=== PATIENT | female | born 1965 | race Caucasian/White ===

== ENCOUNTER → 2016-06-28 19:36 | Outpatient (CLI) | payer BC | END | disposition home or self-care (01) | LOC: D.MAMMO 16:00 | DX: Z12.31 Encounter for screening mammogram for malignant neoplasm of breast (principal) ==

== ENCOUNTER 2017-05-20 11:54 | Emergency (ER) | payer BC ==
[2017-05-20 14:05] LABS: BASOPHILS 0.7 % (0-2); EOSINOPHILS 3.9 % (0-7); HEMATOCRIT 42.4 % (36.0-48.0); IMMATURE GRANULOCYTES 0.5 % (0-5); LYMPHOCYTES 37.7 % (15-50); MCH 29.4 pg (26.0-34.0); MCV 88.9 fL (80.0-100.0); MEAN PLATELET VOLUME 10.2 fL (7.4-10.4); NEUTROPHILS 50.2 % (40-80); PLATELET COUNT 263 10x3/uL (130-400); RBC 4.77 10x6/uL (4.00-5.40); RDW 13.5 % (11.5-14.5); WBC 6.1 10x3/uL (4.8-10.8)
[2017-05-20 14:59] LABS: ALBUMIN 4.1 g/dL (3.4-5.0); ANION GAP 15.8 mmol/L (8-16); BILIRUBIN - TOTAL 0.25 mg/dL (0.2-1.3); CALCIUM 9.6 mg/dL (8.5-10.1); CARBON DIOXIDE 25.6 mmol/L (21.0-32.0); CREATININE - SERUM 0.9 mg/dL (0.6-1.3); POTASSIUM - SERUM 4.4 mmol/L (3.5-5.1); PROTEIN - SERUM 7.1 g/dL (6.4-8.2)
[2017-05-21] MEDS ORDERED: LAMICTAL200 MG PO (08:04)
[2017-05-21] MEDS ORDERED: VISTARIL50 MG PO (08:04)
[2017-05-21] MEDS ORDERED: DESERYL100 MG PO (08:04)
[2017-05-21] MEDS ORDERED: LITHIUM CARBON150 MG PO (08:05)
[2017-05-21] MEDS ORDERED: VIBRAMYCIN50 MG PO (08:05)
[2017-05-21] MEDS ORDERED: PROTONIX40 MG PO (08:05)
[2017-05-21 08:40] VITALS: BMI 37.1
== END 2017-05-20 15:45 | disposition home or self-care (01) ==
LOC: D.ER 11:54
PROVIDERS: Emergency Medicine
DX: M79.661 Pain in right lower leg (principal); K21.9 Gastro-esophageal reflux disease without esophagitis; I10 Essential (primary) hypertension

== ENCOUNTER 2017-05-21 07:29 | Outpatient (CLI) | payer BC ==
[~2017-05-21] VITALS: Ht 162.6 cm; Wt 98.2 kg
--- NOTE | ~2017-05-21 | OP ---
PATIENT NAME: MOISÉS AGUIRRE MEDICAL RECORD: [id number] :65 LOCATION:D.CAT ADMISSION DATE: SURGEON: ALBA LINDO MD DATE OF OPERATION: 05/21/2017 PROCEDURES: 1. Left heart catheterization. 2. Selective coronary angiography. 3. Left ventriculogram. 4. Aortofemoral runoff. 5. Abdominal aortography. INDICATION: Leg pain compatible with claudication, chest pain compatible with angina. PROCEDURE IN DETAIL: After informed consent was obtained and after detailed explanation of risks, benefits as well as alternative therapies, the patient elected to proceed with angiogram and angioplasty. The left femoral area was prepped and draped in normal sterile fashion. Left femoral artery was cannulated via modified Seldinger technique with placement of 6-Kiswahili sheath. All catheters exchanged through this sheath. FINDINGS: The left ventriculogram was performed in standard 30-degree BERNABE view, reveals good cardiac wall motion throughout all segments. Overall ejection fraction estimated 60%. SELECTIVE CORONARY ANGIOGRAPHY: Left main, left anterior descending, left circumflex, and right coronary artery are all smooth-walled vessels with no angiographic evidence of coronary artery disease. Abdominal aortography was performed. The catheter was pulled down for aortofemoral runoff. Abdominal aortography reveals no significant abdominal aortic disease. No dissection or aneurysm formation. No renal artery stenosis. RIGHT LEG: A. Iliac: The common internal and external iliacs have mild irregularities, but no flow-limiting stenosis. B. Femoral system: The common, superficial and deep femoral have moderate irregularities, but no flow-limiting stenosis. C. Popliteal and infrapopliteal vessels are widely patent with good 3-vessel runoff to the foot. LEFT LEG: A. Iliac: The common internal and external iliacs have mild irregularities, but no flow-limiting stenosis. B. Femoral system: The common, superficial and deep femoral have moderate irregularities, but no flow-limiting stenosis. C. Popliteal and infrapopliteal vessels are widely patent with good 3-vessel runoff to the foot. OVERALL IMPRESSION: 1. No significant coronary artery disease is present. 2. No significant peripheral vascular disease is present. Leg pain is non-arterial vascular in etiology. Chest pain is noncardiac in etiology. OPERATIVE REPORT [id number] MOISÉS AGUIRRE TRANSINT:[id number] Voice Confirmation ID: [id number] DOCUMENT ID: [id number] ALBA LINDO MD at 1324 CC: [id number] DICTATION DATE: 05/21/17 1046 WINDERMAN: 05/21/17 1423 DEP CLI 05/21/17 [id number] [place] [address]
--- NOTE | ~2017-05-21 | HEMODYNAMI ---
PATIENT:MOISÉS AGUIRRE MEDICAL RECORD: [id number] : 65 LOCATION:DRAMA ADMISSION DATE: 05/21/17 Generatedon:05/21/201710:48 Patient name: MOISÉS AGUIRRE Patient #: [id number] SSN: [id number] : 1965 Date of study: 05/21/2017 Page: Of Hemodynamic Procedure Report Patient Data Patient Demographics Procedure consent was obtained First Name: MOISÉS Gender: Female Last Name: CARLA : 1965 Middle Initial: NEFTALY Age: 52 year(s) Patient #: [id number] Race: Unknown SSN: [id number] Additional ID: [id number] Contact details Address: [address] [place] [address] State: [place] City: [place] Zip code: [address] Admission Admission Data Admission Date: 05/21/2017 Admission Time: 7:29 Arrival Date: 05/21/2017 Arrival Time: 9:30 Admit Source: Other Insurance Payor: Private health insurance Height (in.): 5.3 BSA: 0.34 (m2) Height (cm.): 13.46 BMI: 5606.54 (kg/m2) Weight (lbs.): 224 Weight (kg.): 101.6 Lab Results Lab Result Date: 05/21/2017 Lab Result Time: 0:00 Biochemistry Name Units Result Min Max BUN mg/dl 14 --(--*-)-- 7 18 Creatinine mg/dl 0.9 --(-*--)-- 0.6 1.3 CBC Name Units Result Min Max Hemoglobin g/dl 13.7 --(*---)-- 13.5 17.5 Procedure Procedure Types Cath Procedure Diagnostic Procedure [facility] w/Coronaries Miscellaneous Procedures Moderate Sedation up to 15 minutes Peripheral Cath Diagnostic Procedure Cath Peripheral Jkecy-Hjlqrqk-Qoz-Off Procedure Description Procedure Date Procedure Date: 05/21/2017 Procedure Start Time: 10:34 Procedure End Time: 10:41 Procedure Staff Name Function Pal Gomez MD Performing Physician Migdalia Yuen RT Monitor Kathleen Gutiérrez RT Scrub Funmi Salinas RN Nurse Procedure Data Cath Procedure Fluoroscopy Diagnostic fluoroscopy Total fluoroscopy Time: 1.2 time: 1.2 min min Diagnostic fluoroscopy Total fluoroscopy dose: 363 dose: 363 mGy mGy Contrast Material Contrast Material Type Amount (ml) Isovue 300 93 Entry Location Entry Primary Successful Side Size Upsize Upsize Entry Closure Succes sful Closure Location (Fr) 1 (Fr) 2 (Fr) Remarks Device Remarks Femoral Left 5 Fr Exoseal artery Estimated blood loss: 5 ml Diagnostic catheters Device Type Used For End Catheter Placement MULTIPACK Pigtail 5 Fr Multi-vessel catheter Angiography MULTIPACK 3DRC 5Fr Right Coronary catheter Angiography MULTIPACK JL 4.0 5Fr Left Coronary catheter Angiography Procedure Complications No complications Procedure Medications Medication Administration Route Dosage 0.9% NaCl I.V. 100 ml/hr Oxygen NC 2 l/min Lidocaine 2% added to field 20 Heparin Flush Bag added to field 2 bags (1000units/500ml NS) Fentanyl I.V. 50 mcg Versed I.V. 1 mg Versed I.V. 1 mg Fentanyl I.V. 50 mcg Versed I.V. 1 mg Versed I.V. 1 mg Hemodynamics Rest BSA: 0.34 (m2) HGB: 13.7 (g/dl) O2 Consumption: Estimated: 36.11 (ml/min) O2 Con sumption indexed: Estimated:106.21 (ml/min/m) Heart Rate: 94 (bpm) Pressure Samples Time Site Value (mmHg) Purpose Heart Use Rate(bpm) 10:35 LV 49/20,23 Snapshot 87 Snapshots Pre Cath Intra NCS Post Cath Vital Signs Time Heart Resp SPO2 etCO2 NIBP (mmHg) Rhythm Pain Sedation Rate (ipm) (%) (mmHg) Status Level (bpm) 9:46:15 95 20 100 29.5 184/107(147) NSR 0 (11) 10(A) , No pain 9:50:49 91 19 99 33.2 193/106(147) NSR 0 (11) 10(A) , No pain 9:55:19 100 24 98 24.9 176/120(150) NSR 0 (11) 10(A) , No pain 9:59:50 95 16 97 33.2 163/102(138) NSR 0 (11) 10(A) , No pain 10:04:18 94 15 96 18.1 149/91(126) NSR 0 (11) 10(A) , No pain 10:08:38 98 16 96 32.5 157/94(118) NSR 0 (11) 10(A) , No pain 10:13:01 97 16 96 33.2 140/94(121) NSR 0 (11) 10(A) , No pain 10:17:16 98 15 96 25.7 135/94(121) NSR 0 (11) 10(A) , No pain 10:21:30 98 15 96 36.3 138/92(114) NSR 0 (11) 9(A) , No pain 10:25:46 100 14 98 35.5 134/95(114) NSR 0 (11) 9(A) , No pain 10:29:57 107 14 99 36.3 142/95(118) NSR 0 (11) 10(A) , No pain 10:34:17 105 22 95 34 143/90(118) NSR 0 (11) 9(A) , No pain 10:38:37 108 18 96 37 138/90(116) NSR 0 (11) 10(A) , No pain Medications Time Medication Route Dose Verified Delivered Reason Notes E ffectiveness by by 9:36:16 0.9% NaCl I.V. 100ml/hr Pal Choudhary used for Jason Salinas RN procedure 9:36:27 Oxygen NC 2 l/min Pal Choudhary Per Jason Salinas RN physician 9:36:36 Lidocaine 2% added 20ml Pal Aguillon for local to vial Jason Gomez MD anesthetic field 9:36:42 Heparin Flush added 2 bags Pal Aguillon used for Bag to Jason Gomez MD procedure (1000units/500ml field NS) 10:18:47 Fentanyl I.V. 50 mcg Pal Choudhary for Jason Salinas RN sedation 10:18:55 Versed I.V. 1 mg Pal Choudhary for Jason Salinas RN sedation 10:25:24 Versed I.V. 1 mg Pal Choudhary for Jason Salinas RN sedation 10:25:31 Fentanyl I.V. 50 mcg Pal Salinas RN sedation 10:36:56 Versed I.V. 1 mg Pal Salinas RN sedation 10:38:20 Versed I.V. 1 mg Pal Salinas RN sedation Procedure Log Time Note 9:10:41 Patient Height : 5.3 inches 9:10:45 Patient Weight : 224 lbs 9:11:11 Time tracking: Regular hours 9:11:15 Plan of Care:Hemodynamics will remain stable., Cardiac rhythm will remain stable., Comfort level will be maintained., Respiratory function will remain adequate., Patient/ family verbilizes understanding of procedure., Procedure tolerated without complication., Recovers from procedure without complications.. 9:17:27 Lab Result : BUN 14 mg/dl 9:: Lab Result : Hemoglobin 13.7 g/dl 9:: Lab Result : Creatinine 0.9 mg/dl 9:30:41 Funmi Salinas RN sent for patient. Start room use. 9:32:04 Admit Source: Other 9:32:09 Arrival Date: 05/21/2017 9:30:00 AM 9:32:17 Insurance Payor : Private health insurance 9:36:16 0.9% NaCl 100ml/hr I.V. was administered by Funmi Salinas RN; used for procedure; 9:36:27 Oxygen 2 l/min NC was administered by Funmi Salinas RN; Per physician; 9:36:36 Lidocaine 2% 20ml vial added to field was administered by Pal Gomez MD; for local anesthetic; 9:36:42 Heparin Flush Bag (1000units/500ml NS) 2 bags added to field was administered by Pal Gomez MD; used for procedure; 9:38:58 Patient received from Pre/Post Procedure Room to [facility] 2 Alert and oriented. Tansferred to table in Supine position. 9:39:00 Warm blankets applied, and lm hugger turned on for patient comfort. 9:39:00 Correct patient and procedure confirmed by team. 9:39:01 Signed procedure consent form obtained from patient. 9:44:53 Vital chart was started 9:50:18 ECG and BP/O2 sat monitors applied to patient. 9:50:24 Baseline sample Acquired. 9:50:32 Rhythm: sinus rhythm 9:50:34 Full Disclosure recording started 9:51:43 H&P Date Dictated: 05/02/2017 Within 30 days and on chart., H&P Addendum completed by physician on day of procedure. (MUST COMPLETE FOR ALL OUTPATIENTS). 9:51:49 Pre-procedure instructions explained to patient. 9:51:50 Pre-op teaching completed and patient verbalized understanding. 9:51:52 Family in waiting room. 9:51:56 Patient NPO since Midnight. 9:52:00 Is the patient allergic to Iodine/contrast media? No. 9:52:11 Was the patient premedicated? No 9:52:23 Is patient on blood thinner?No 9:52:25 Patient diabetic? No. 9:52:28 Previous problem with sedation/anesthesia? No ? 9:52:29 Snore? Yes 9:52:30 Sleep apnea? No 9:52:31 Deviated septum? No 9:52:32 Opens mouth fully? Yes 9:52:33 Sticks out tongue? Yes 9:52:35 Airway obstruction? No ? 9:52:39 Dentures? No ? 9:52:43 Pre procedure: right dorsailis pedis pulse 2+ Normal; easily identifiable; not easily obliterated 9:52:45 Pre procedure: left dorsailis pedis pulse 2+ Normal; easily identifiable; not easily obliterated 9:52:47 Patient pain scale 0/10 ?. 9:52:53 IV patent on arrival in left forearm with 0.9% NaCl at KVO. 9:52:56 Lab results completed and on chart. 9:53:02 Right groin area was prepped with chlora-prep and draped in sterile fashion 9:53:03 Alarms reviewed by R. N. 9:53:04 Sharps counted by scrub and verified by R.N. 10:01:21 Zero performed for pressure channel P1 10:17:47 Physician arrived 10:17:48 --------ALL STOP TIME OUT------ 10:17:48 Final Timeout: patient, procedure, and site verified with staff and physician. All members of the team are in agreement. 10:17:58 Bilateral groins site verified by team. 10:18:01 Physical assessment completed. ASA score P 2 - A patient with mild systemic disease as per Pal Tauth MD. 10:18:04 Sedation plan: IV Moderate Sedation Medication:Versed, Fentanyl 10:18:47 Fentanyl 50 mcg I.V. was administered by Funmi Salinas RN; for sedation; 10:18:55 Versed 1 mg I.V. was administered by Funmi Salinas RN; for sedation; 10:19:07 Use device set Femoral Dx 10:19:08 ACIST Syringe (02695) opened to sterile field. 10:19:09 Bag Decanter (2002S) opened to sterile field. 10:19:09 Medline Cath Pack ([id number]) opened to sterile field. 10:19:10 SHEATH 5FR [place]wood (UIT683) opened to sterile field. 10:19:10 DIAGNOSTIC WIRE .035 260cm J wire (226616) opened to sterile field. 10:19:11 ACIST Hand Control (89875) opened to sterile field. 10:19:12 ACIST Manifold (70369) opened to sterile field. 10:19:12 DIAGNOSTIC Multipack 5Fr catheter set (MD4342) opened to sterile field. 10:19:14 Tegaderm 4 x 4 (1626W) opened to sterile field. 10:21:10 Procedure type changed to Cath procedure, Diagnostic procedure, LHC, LHC w/Coronaries, Miscellaneous Procedures, Moderate Sedation up to 15 minutes, Peripheral Cath Diagnostic Procedure, Cath Peripheral, Qqccm-Obhwmhm-Pte-Off 10:25:24 Versed 1 mg I.V. was administered by Funmi Salinas RN; for sedation; 10:25:31 Fentanyl 50 mcg I.V. was administered by Funmi Salinas RN; for sedation; 10:33:13 Procedure started. 10:34:30 Local anesthetic to left femerol artery with Lidocaine 2% by Pal Gomez MD.INITIAL ACCESS ONLY 10:34:41 A 5 Fr sheath was inserted into the Left Femoral artery 10:35:31 A MULTIPACK Pigtail 5 Fr catheter was advanced over the wire and used for Multi-vessel Angiography. 10:35:54 LV hemodynamics recorded. 10:35:55 LV gram done using BERNABE 10:35:58 Injector settings: Ml/sec: 5, Volume: 15, 10:36:13 EF : 60 % 10:36:18 Abdominal angiogram w/ runoff was performed. 10:36:56 Versed 1 mg I.V. was administered by Funmi Salinas RN; for sedation; 10:37:14 Catheter removed. 10:38:16 A MULTIPACK 3DRC 5Fr catheter was advanced over the wire and used for Right Coronary Angiography. 10:38:18 RCA angiography performed. 10:38:20 Versed 1 mg I.V. was administered by Funmi Salinas RN; for sedation; 10:38:21 Injector settings: Ml/sec: 3, Volume: 6, 10:38:24 Catheter removed. 10:38:28 A MULTIPACK JL 4.0 5Fr catheter was advanced over the wire and used for Left Coronary Angiography. 10:38:56 LCA angiography performed. 10:39:00 Injector settings: Ml/sec: 3, Volume: 6, 10:39:53 EXOSEAL 5Fr (EX500) opened to sterile field. 10:40:02 Sheath removed intact; hemostasis achieved with Exoseal to the Left Femoral artery. 10:40:10 Procedure ended.(Physican Out) 10:40:27 Fluoroscopy time 01.20 minutes. 10:40:31 Fluoroscopy dose: 363 mGy 10:40:31 Flurop Dose total: 363 10:40:39 Contrast amount:Isovue 300 93ml. 10:40:44 Sharps counted by scrub and verified by R.N. 10:40:59 Insertion/operative site no bleeding no hematoma. 10:41:05 Post-op/insertion site Left Femoral artery dressed using a 4 x 4 and Tegaderm. 10:41:08 Post left femerol artery:stable 10:41:10 Post Procedure Pulses reassessed and unchanged 10:41:12 Post procedure rhythm: unchanged. 10:41:15 Estimated blood loss: 5 ml 10:41:16 Post procedure instruction explained to patient.Patient verbalizes understanding. 10:41:16 Patient needs reinforcement of post procedure teaching. 10:41:18 Procedure and supply charges have been captured, reviewed, submitted and are correct. 10:41:23 Procedure Complication : No complications 10:41:26 Vital chart was stopped 10:41:26 See physician's report for complete and final results. 10:41:38 Report given to Pre/Post Procedure Room. 10:41:41 Patient transfered to Pre/Post Procedure Room with Stretcher. 10:41:44 Procedure ended. 10:41:44 Full Disclosure recording stopped 10:41:48 End room use (Document Last) Device Usage Item Name Manufacture Quantity Catalog Hospital Part Current Minimal L ot# / Number Charge Number Stock Stock Serial# Code ACIST Acist 1 44904 257729 956246 293975 20 Syringe Medical (83370) Systems Inc Bag Microtek 1 2001S 004902 49676 247599 5 Decanter Medical Inc. (2001S) Medline Cardinal 1 [id number] 028607 07462 769405 5 Cath Pack Health ([id number]) SHEATH 5FR Terumo 1 [id number] 064521 918085 061434 40 [place] (VQH620) DIAGNOSTIC St Jack 1 273821 222146 506317 395805 30 WIRE .035 260cm J wire (229434) ACIST Hand Acist 1 65156 620379 031865 344678 5 Control Medical (95269) Systems Inc ACIST Acist 1 99089 522998 915179 173731 5 Manifold Medical (40239) Systems Inc DIAGNOSTIC Cardinal 1 [id number] 961136 83433 649670 30 Multipack Health 5Fr catheter set (JK5957) Tegaderm 4 3M 1 1626W 505332 484536 427147 5 x 4 (1626W) MULTIPACK Cardinal 1 236563 5 Pigtail 5 Health Fr catheter MULTIPACK Cardinal 1 233600 5 3DRC 5Fr Health catheter MULTIPACK Cardinal 1 803118 5 JL 4.0 5Fr Health catheter EXOSEAL 5Fr Cardinal 1 EX500 317213 247763 881313 10 (EX500) Health Signature Audit [place] Stage Time Signature Unsigned Intra-Procedure 05/21/2017 Migdalia Yuen 10:48:02 AM RT(R) Signatures Monitor : Migdalia Yuen RT Signature : Date : Time : [facility] [address] [place] [address]
[2017-05-21] MEDS ORDERED: DESERYL100 MG PO (08:04)
[2017-05-21] MEDS ORDERED: VISTARIL50 MG PO (08:04)
[2017-05-21] MEDS ORDERED: LAMICTAL200 MG PO (08:04)
[2017-05-21] MEDS ORDERED: LITHIUM CARBON150 MG PO (08:05)
[2017-05-21] MEDS ORDERED: PROTONIX40 MG PO (08:05)
[2017-05-21] MEDS ORDERED: VIBRAMYCIN50 MG PO (08:05)
[2017-05-21 08:36] LABS: BASOPHILS 0.7 % (0-2); EOSINOPHILS 3.6 % (0-7); HEMATOCRIT 41.1 % (36.0-48.0); HEMOGLOBIN 13.7 g/dL (12-16); IMMATURE GRANULOCYTES 0.4 % (0-5); LYMPHOCYTES 24.6 % (15-50); MCHC 33.3 g/dL (31.0-37.0); MCV 87.1 fL (80.0-100.0); MEAN PLATELET VOLUME 10.4 fL (7.4-10.4); MONOCYTES 6.6 % (2-11); NEUTROPHILS 64.1 % (40-80); PLATELET COUNT 274 10x3/uL (130-400); RBC 4.72 10x6/uL (4.00-5.40); RDW 13.3 % (11.5-14.5); WBC 5.6 10x3/uL (4.8-10.8)
[2017-05-21 08:40] VITALS: BP 136/83; Ht 162.6 cm; Wt 98.2 kg
[2017-05-21 08:57] LABS: ANION GAP 11.9 mmol/L (8-16); CALCIUM 9.1 mg/dL (8.5-10.1); CARBON DIOXIDE 27.6 mmol/L (21.0-32.0); CREATININE - SERUM 0.9 mg/dL (0.6-1.3); POTASSIUM - SERUM 4.5 mmol/L (3.5-5.1)
== END 2017-05-21 13:10 | disposition home or self-care (01) ==
LOC: D.CATH 07:29
PROVIDERS: Internal Medicine Interventional Cardiology
DX: I20.9 Angina pectoris, unspecified (principal); R07.9 Chest pain, unspecified; R94.30 Abnormal result of cardiovascular function study, unspecified; I10 Essential (primary) hypertension; Z01.812 Encounter for preprocedural laboratory examination

== ENCOUNTER 2018-09-24 08:00 | Outpatient (CLI) | payer BC ==
[2017-05-21 08:40] VITALS: BMI 37.1
[~2018-09-24 08:00] MED LIST: DESERYL100 MG PO; LAMICTAL200 MG PO; LITHIUM CARBON150 MG PO; PROTONIX40 MG PO; VIBRAMYCIN50 MG PO; VISTARIL50 MG PO
== END 2018-09-24 09:00 | disposition home or self-care (01) ==
LOC: D.MAMMO 08:00
PROVIDERS: ATTEND Family Medicine
DX: Z12.31 Encounter for screening mammogram for malignant neoplasm of breast (principal)

== ENCOUNTER 2019-04-15 11:13 | Emergency (ER) | payer BC ==
[~2019-04-15] VITALS: Ht 160 cm; Wt 100.0 kg
[2019-04-15 11:26] VITALS: Ht 160 cm; Wt 100.0 kg
[2019-04-15] MEDS ORDERED: CATAPRES0.1 MG PO (11:27)
[2019-04-15] MEDS ORDERED: LISINOPRIL20 MG PO (11:28)
[2019-04-15] MEDS ORDERED: METOPROLOL TART50 MG PO (11:28)
[2019-04-15 12:08] LABS: BASOPHILS 0.6 % (0-2); EOSINOPHILS 2.8 % (0-7); HEMATOCRIT 42.1 % (36.0-48.0); HEMOGLOBIN 14.1 g/dL (12-16); IMMATURE GRANULOCYTES 0.5 % (0-5); LYMPHOCYTES 25.5 % (15-50); MCH 29.1 pg (26.0-34.0); MCHC 33.5 g/dL (31.0-37.0); MCV 86.8 fL (80.0-100.0); MEAN PLATELET VOLUME 10.1 fL (7.4-10.4); NEUTROPHILS 65.6 % (40-80); PLATELET COUNT 287 10x3/uL (130-400); RBC 4.85 10x6/uL (4.00-5.40); RDW 13.6 % (11.5-14.5); WBC 8.1 10x3/uL (4.8-10.8)
[2019-04-15 12:12] LABS: CALC OSMOLALITY 275 mosm/kg (275-300); CALCIUM 8.9 mg/dL (8.5-10.1); CARBON DIOXIDE 26.6 mmol/L (21.0-32.0); CHLORIDE - SERUM 101 mmol/L (98-107); CREATININE - SERUM 0.8 mg/dL (0.6-1.3); GLUCOSE 90 mg/dL (74-106); POTASSIUM - SERUM 4.3 mmol/L (3.5-5.1); SODIUM 137 mmol/L (136-145); UREA NITROGEN 17 mg/dL (7-18); eGFR NON AFRICAN AMERICAN 79 mL/min (90-120)
[2019-04-15 12:18] LABS: APTT 30.8 SECONDS (22.8-39.4); INR 0.91 (0.85-1.17); PROTIME 11.8 SECONDS (11.6-15.0)
[2019-04-15 12:36] LABS: ALBUMIN 3.8 g/dL (3.4-5.0); ALKALINE PHOSPHATASE 130 U/L (46-116); ALT (SGPT) 41 U/L (10-68); BILIRUBIN - TOTAL 0.27 mg/dL (0.2-1.3); CKMB 0.8 U/L (0.0-3.6); CREATINE KINASE 66 UL (21-215); TROPONIN-I < 0.017 ng/mL (0.000-0.060)
[2019-04-15 14:10] VITALS: BP 140/82
== END 2019-04-15 14:10 | disposition home or self-care (01) ==
LOC: D.ER 11:13
PROVIDERS: Family Medicine
DX: I10 Essential (primary) hypertension (principal)